=== PATIENT | male | born 1995 | race Caucasian/White ===

== ENCOUNTER 2016-08-13 16:48 | Emergency (ER) | payer OTHER ==
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
[~2016-08-13 16:48] MED LIST: ALBUTEROL17 GM INH; BACTRIM DS TABL1 TA2 PO; FLOVENT HFA12 GM INH; MOTRIN600 MG PO; NO MEDICATIONS; PREDNISONE; PREDNISONE PO; PROVENTIL INH0.5 ML HHN; PULMICORT90 MCG/AER IH; RONDEC-DM ORAL30 ML PO; ZITHROMAX PO; [UNRECOGNIZED DRUG - OTHER] PO
== END 2016-08-13 17:25 | disposition home or self-care (01) ==
LOC: SED 16:48
DX: S16.1XXA Strain of muscle, fascia and tendon at neck level, initial encounter (principal); J45.909 Unspecified asthma, uncomplicated; V89.2XXA Person injured in unspecified motor-vehicle accident, traffic, initial encounter; Y92.410 Unspecified street and highway as the place of occurrence of the external cause
CPT/HCPCS: 72040; 99283

== ENCOUNTER 2016-08-21 22:17 | Emergency (ER) | payer OTHER | END 2016-08-21 23:10 | disposition home or self-care (01) | LOC: SED 22:17 | DX: S76.011A Strain of muscle, fascia and tendon of right hip, initial encounter (principal); S39.011A Strain of muscle, fascia and tendon of abdomen, initial encounter; J45.909 Unspecified asthma, uncomplicated; X58.XXXA Exposure to other specified factors, initial encounter | CPT/HCPCS: 99283 ==